=== PATIENT | female | born 1985 | race Caucasian/White ===

== ENCOUNTER 2017-06-08 13:00 | Inpatient (IN) | payer BC ==
[2017-06-19] MEDS ORDERED: RINGER'S SOLUTION,LACTATED 1,000 ML IV PRN ×2 (08:59)
[2017-06-19] MEDS ORDERED: OXYTOCIN 20 UNITS in RINGER'S SOLUTION,LACTATED 1,000 ML IV ONE (08:59)
[2017-06-19] MEDS ORDERED: ceFAZolin SODIUM/DEXTROSE,ISO 2 GM/50 ML BAG IV ONE (08:59)
[2017-06-19] MEDS ORDERED: RINGER'S SOLUTION,LACTATED 1,000 ML IV ONE ×2 (11:40→13:20)
[2017-06-19] MEDS ORDERED: BISACODYL 10 MG SUPP.RECT RC PRN (13:05)
[2017-06-19] MEDS ORDERED: SIMETHICONE 80 MG TAB.CHEW PO PRN (13:05)
[2017-06-19] MEDS ORDERED: oxyCODONE HCL/ACETAMINOPHEN 1 TAB TABLET PO PRN (13:05)
[2017-06-19] MEDS ORDERED: SENNOSIDES 8.6 MG TABLET PO PRN (13:05)
[2017-06-19] MEDS ORDERED: KETOROLAC TROMETHAMINE 30 MG/ML VIAL IV PRN (13:05)
[2017-06-19] MEDS ORDERED: ONDANSETRON HCL/PF 2 MG/ML VIAL IV PRN (13:05)
--- NOTE | 2017-06-19 13:07 | OR ---
Operative Report - Dictated Report Narrative: Operative report: 06/19/2017 Preoperative diagnosis: Prior , 39.2 weeks Postoperative diagnosis: Same Procedure: Repeat low-transverse section Surgeon: Mayra Abel D.O. Career Professional: Or staff Anesthesia: Spinal IV fluids: 1500 Milliliters Urine output: 200 Milliliters EBL: 300 Milliliters Findings: Normal appearing uterus, tubes, and ovaries, no adhesions or scar tissue, female in cephalic presentation, delivered at 12:15, Apgars of 9 and 9 Drains: Lubin catheter to gravity Pathology: None Complications: None Condition: Stable The patient was taken to the operating room with IV fluids running and Lubin catheter in place. She was placed in the dorsal supine position with a leftward tilt. She was prepped and draped in the normal sterile fashion. A Pfannenstiel skin incision was made with the scalpel approximately 2 cm above the pubic symphysis along the prior incision. The subcutaneous tissue was dissected down to the fascia. The fascia was incised in the midline and extended laterally. The superior aspect of the fascia was grasped with Grzegorz clamps and the rectus muscles were dissected off the fascia using Orozco scissors and blunt dissection. In a similar fashion, the inferior aspect of the fascia was grasped and the rectus muscles dissected off. The peritoneum was then entered and extended with good visualization of the bowel and bladder. The uterine incision was made in a low-transverse fashion using the scalpel. It was extended laterally in a blunt manner. The infant was found to be cephalic. The infant was then delivered atraumatically. The cord was clamped and cut. The was handed off to the waiting warehouse forklift operator. Cord blood was then collected. The placenta was then delivered spontaneously. The uterus was cleared of all clots and debris. Uterine incision was reapproximated using 0 Vicryl in a running locked fashion. A second layer of 0 Vicryl was used to imbricate the uterine incision. Hemostasis was obtained. The peritoneum was then reapproximated using 3-0 Monocryl. The rectus muscles were inspected, cautery was used to obtain hemostasis. The fascia was then reapproximated with 0 Vicryl. The subcutaneous tissue was then irrigated. Bovie cautery was used to obtain hemostasis. The subcutaneous tissue was then reapproximated using 3-0 Monocryl. The skin was closed in a subcuticular fashion using 4-0 Monocryl. The incision was found to be hemostatic. Benzoin and Steri-Strips were then applied. Telfa and ABDs bandage was then placed. The patient tolerated the procedure well. Sponge, lap, needle, and instrument counts were correct throughout the entire procedure. The patient was taken to the recovery room in stable condition.
--- NOTE | 2017-06-19 13:23 | OR ---
Anesthesia Procedure Note - Anesthesia Procedure Note Date of Service: 06/19/17 Narrative: Vital Signs - Last Taken Temp 36.8 C 06/19/17 13:19 Pulse 76 06/19/17 13:19 Resp 18 06/19/17 13:19 BP 128/92 06/19/17 13:19 Pulse Ox 98 06/19/17 13:19 O2 Oxygen Delivery Method Room Air 06/19/17 13:21 ANESTHESIA PROCEDURE NOTE Date of Procedure: 06/19/2017. Time of procedure: 11/28/2004. Performed by: Tyrell Lewis CRNA Sales Exec: None. Preprocedure diagnosis: Repeat . Post procedure diagnosis: Same. Procedure: Bilateral ultrasound-guided transversus abdominis plane block for postop analgesia. Indications: The patient is a 31 -year-old female post section. Findings: See below. Details of the procedure: DuraPrep was used on the patient's abdomen and the procedure was performed under sterile technique. The right abdominal fascial layer between the internal oblique muscle and the transversus abdominis muscles was identified under ultrasound guidance. A 21-gauge 4 inch block needle was inserted under ultrasound guidance to the target fascial plane. 15 mL's of 0.5 % bupivacaine plus epinephrine 1:200,000 was injected after negative aspiration for blood. The needle was removed intact and the procedure was then repeated at the left side. No complications were noted. The images were retained in the Hospital medical database . EBL: Minimal. Fluids: N/A. Specimen: N/A. Post procedure condition: The patient tolerated the procedure well. No complications were noted. Thank you for this consultation. Tyrell Lewis CRNA
[2017-06-19] MEDS: IBUPROFEN 800 MG TABLET PO PRN (19:02)
[2017-06-19] MEDS: oxyCODONE HCL/ACETAMINOPHEN 1 TAB TABLET PO PRN ×3 (19:02→23:50)
[2017-06-19] MEDS: DOCUSATE SODIUM 100 MG CAPSULE PO SCH (20:45)
[2017-06-20] MEDS: IBUPROFEN 800 MG TABLET PO PRN ×4 (01:10→19:50)
[2017-06-20] MEDS: oxyCODONE HCL/ACETAMINOPHEN 1 TAB TABLET PO PRN ×3 (06:40→13:39)
[2017-06-20] MEDS: DOCUSATE SODIUM 100 MG CAPSULE PO SCH ×4 (07:54→20:02)
--- NOTE | 2017-06-20 09:08 | PN ---
Progess Note - Interim Narrative: 06/20/17 09:06 Pt is doing well, c/o more cramping. Denies fever, chills. Ambulating, voiding , christine po. Pain controlled with po meds. Min lochea. VSS Incision: C/D/I Ext: NT, min edema Abd: soft, nondistended, dif. tender A/P: POD #1, doing well Routine postop care and advancements
[2017-06-21] MEDS: IBUPROFEN 800 MG TABLET PO PRN ×2 (02:06→08:31)
[2017-06-21 08:27] VITALS: BP 118/68
[2017-06-21] MEDS: DOCUSATE SODIUM 100 MG CAPSULE PO SCH (08:31)
--- NOTE | 2017-06-21 09:27 | PN ---
Progess Note - Interim Narrative: 06/21/17 09:26 progress note Subjective: The patient is doing well. She is ambulating, voiding, tolerating by mouth. She has minimal pain and moderate lochia. Passing gas. Objective: General: No acute distress Abdomen: Soft, nontender, fundus is firm just below the umbilicus Incision: Clean, dry, and intact Extremities: minimal edema, nontender to palpation Assessment and plan: day 2, patient wishes to go home today Feeding: Breast Pain: Controlled with by mouth medication Routine care.
== END 2017-06-21 12:18 | disposition home or self-care (01) | DRG 766 ==
LOC: OB 06-19 08:32
PROVIDERS: ADMIT Obstetrics & Gynecology Gynecologic Oncology; ATTEND Obstetrics & Gynecology Gynecologic Oncology
PROC: 4A1HXCZ Monitoring of Products of Conception, Cardiac Rate, External Approach (ICD-10-PCS; 2017-06-19)
PROC: 10D00Z1 Extraction of Products of Conception, Low, Open Approach (ICD-10-PCS; principal; 2017-06-19 12:00)
DX: O82 Encounter for cesarean delivery without indication (principal); Z3A.39 39 weeks gestation of pregnancy; Z37.0 Single live birth